=== PATIENT | male | born 1990 | race American Indian/Alaskan Native ===

== ENCOUNTER 2018-03-27 23:01 | Emergency (ER) | payer OTHER ==
[2018-03-28] MEDS ORDERED: MOTRIN PO ONE (09:33)
[2018-03-28] MEDS ORDERED: VALIUM PO ONE (09:33)
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
--- NOTE | 2018-03-28 10:04 | XRay Report ---
AP AND LATERAL CERVICAL SPINE: History: Neck pain. The vertebral bodies are well mineralized and normal in alignment and vertebral height with well preserved interspace distances. The visualized portions of the posterior elements are normal. IMPRESSION: Normal study.
[2018-03-28 10:31] VITALS: BP 130/72
== END 2018-03-28 10:29 | disposition home or self-care (01) ==
LOC: ED 23:01
DX: S16.1XXA Strain of muscle, fascia and tendon at neck level, initial encounter (principal); Z79.899 Other long term (current) drug therapy; V49.09XA Driver injured in collision with other motor vehicles in nontraffic accident, initial encounter; Y93.89 Activity, other specified; Y99.8 Other external cause status; Y92.488 Other paved roadways as the place of occurrence of the external cause
CPT/HCPCS: 72040

== ENCOUNTER 2021-03-24 19:24 | Emergency (ER) | payer SELFPAY ==
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
[2021-03-25 08:26] VITALS: BP 138/85
== END 2021-03-25 12:00 | disposition home or self-care (01) ==
LOC: ED 19:24
DX: R41.82 Altered mental status, unspecified (principal); Z53.21 Procedure and treatment not carried out due to patient leaving prior to being seen by health care provider
CPT/HCPCS: 70450; 72125